=== PATIENT | female | born 1955 | race Caucasian/White ===

== ENCOUNTER 2016-11-30 10:28 | Emergency (ER) | payer BC, OTHER ==
[~2016-11-30] VITALS: Ht 162.6 cm; Wt 123.4 kg
[~2016-11-30 10:28] MED LIST: AMLO5TAB4 PO; ASPI-630 PO; GLYB5TAB3 PO; HCTZ; HYDR-923 PO; IBUP-1027 PO; METF-620 PO; TIZA2CAP3 PO
--- NOTE | 2016-11-30 11:27 | PHYS DOC ---
Past Medical History Past Medical History: CVA, Diabetes-Type II, Glaucoma, High Cholesterol, Hypertension, IBS Past Surgical History: Cholecystectomy, Hysterectomy, Oophorectomy, Tonsillectomy Alcohol Use: None Drug Use: None Adult General Chief Complaint Chief Complaint: MECHANICAL FALL HPI HPI Patient is a 61 year old female who presents with headache and neck pain after a mechanical fall at [facility]. She states she was walking in when she tripped on a mat and fell forward, putting her hands out to brace her fall but then doesn't remember what happened next. Denies taking blood thinners, now with neck and head pain. Reports chronic low back pain, she was ambulatory at the scene. Review of Systems Review of Systems Constitutional: Denies fever or chills [] Eyes: Denies change in visual acuity, redness, or eye pain [] HENT: Denies nasal congestion or sore throat [] Respiratory: Denies cough or shortness of breath [] Cardiovascular: Denies chest pain GI: Denies abdominal pain, nausea, vomiting, bloody stools or diarrhea [] : Denies dysuria or hematuria [] Musculoskeletal: per hpi Integument: Denies rash or skin lesions [] Neurologic: Denies focal weakness or sensory changes [] Endocrine: Denies polyuria or polydipsia [] Current Medications Current Medications Current Medications Medications (Trade) Dose Ordered Sig/Anum Start Time Stop Time Status Last Admin Dose Admin Acetaminophen (Tylenol) 1,000 mg 1X ONCE 11/30/16 11:30 11/30/16 11:31 DC 11/30/16 11:50 1,000 MG Cyclobenzaprine HCl (Flexeril) 5 mg 1X ONCE 11/30/16 11:30 11/30/16 11:31 DC 11/30/16 11:50 5 MG Allergies Allergies Allergies Coded Allergies Type Severity Reaction Last Updated Verified morphine Allergy Unknown 09/04/13 Yes Physical Exam Physical Exam Constitutional: Well developed, well nourished, no acute distress, non-toxic appearance. [] HENT: Normocephalic, atraumatic, bilateral external ears normal, oropharynx moist, no oral exudates, nose normal. [] Eyes: PERRLA, EOMI, conjunctiva normal, no discharge. [] Neck:cervical collar in place, trachea midline, mid/low cervical spine ttp without stepoffs Cardiovascular:Heart rate regular rhythm, no murmur [] Lungs & Thorax: Bilateral breath sounds clear to auscultation, no wheeze Abdomen: Bowel sounds normal, soft, no tenderness, no masses, no pulsatile masses. [] Skin: Warm, dry, no erythema, no rash. [] Back: No mdiline stepoffs or tenderness, no CVA tenderness. [] Extremities: No tenderness, no cyanosis, no clubbing, ROM intact, no edema, knees without erythema or edema/no effusion Neurologic: Alert and oriented X 3, normal motor function, normal sensory function, no focal deficits noted. [] Current Patient Data Vital Signs Vital Signs Date Time Temp Pulse Resp B/P (MAP) Pulse Ox O2 Delivery O2 Flow Rate FiO2 11/30/16 11:52 78 16 96 11/30/16 10:39 98.9 215/100 (138) Room Air 98.9 EKG EKG [] Radiology/Procedures Radiology/Procedures CT head and neck: IMPRESSION: 1. Small foci of encephalomalacia in the medial left occipital and right frontal lobes suggesting old infarcts. 2. No acute intracranial abnormality is detected. IMPRESSION: 1. Moderate multilevel degenerative change as described above. 2. No acute bony abnormality is detected. [] Course & Med Decision Making Course & Med Decision Making Pertinent Labs and Imaging studies reviewed. (See chart for details) pt given flexeril and Tylenol. CT scans performed, not acute findings. Counseled pt on concussion treatment/precautions. Pt has home pain meds/muscle relaxer. Dragon Disclaimer Dragon Disclaimer This electronic medical record was generated, in whole or in part, using a voice recognition dictation system. Departure Departure Impression: Primary Impression: Concussion Disposition: 01 HOME, SELF-CARE Condition: STABLE Referrals: TOMÁS TURNER DO (PCP) CAROLYNE TINSLEY MD Nov 30, 2016 11:27
[2016-11-30] MEDS ORDERED: ACETAMINOPHEN 500 MG TABLET PO ONE (11:30)
[2016-11-30] MEDS ORDERED: CYCLOBENZAPRINE 10 MG TABLET. PO ONE (11:30)
[2016-11-30 11:52] VITALS: BP 197/89
--- NOTE | 2016-11-30 12:00 | RAD ---
CT of the head without contrast, 11/30/2016: History: Fall, head and neck pain The ventricles are within normal limits in size. There is no shift of the midline structures. There is no evidence of acute intracranial hemorrhage or mass effect. There is a small area decreased density posteromedially in the left occipital lobe suggesting encephalomalacia due to an old infarct. A smaller area of decreased density is also noted in the right frontoparietal parasagittal region. IMPRESSION: 1. Small foci of encephalomalacia in the medial left occipital and right frontal lobes suggesting old infarcts. 2. No acute intracranial abnormality is detected. CT of the cervical spine without contrast, 11/30/2016: Noncontrast scans were obtained with multiplanar reconstructions produced. There is moderate disc space narrowing at C5-6 and to a lesser degree at C6-7 and C4-5 with moderate anterior and posterior marginal spurring. There are moderate degenerative changes involving multiple facet joints bilaterally. The combination of findings is causing moderate central spinal stenosis at multiple levels including C6-7, C5-6 and C4-5. There is bony foraminal encroachment bilaterally at C5-6. No acute fracture or dislocation is identified. The visualized paraspinal soft tissues are unremarkable. IMPRESSION: 1. Moderate multilevel degenerative change as described above. 2. No acute bony abnormality is detected. PQRS Compliance Statement: One or more of the following individualized dose reduction techniques were utilized for this examination: 1. Automated exposure control 2. Adjustment of the mA and/or kV according to patient size 3. Use of iterative reconstruction technique
== END 2016-11-30 13:00 | disposition home or self-care (01) ==
LOC: ER 10:28
DX: S06.0X0A Concussion without loss of consciousness, initial encounter (principal); M54.2 Cervicalgia; M54.5 Low back pain; E11.39 Type 2 diabetes mellitus with other diabetic ophthalmic complication; H40.9 Unspecified glaucoma; E78.00 Pure hypercholesterolemia, unspecified; I10 Essential (primary) hypertension; K58.9 Irritable bowel syndrome, unspecified; G89.29 Other chronic pain; Z86.73 Personal history of transient ischemic attack (TIA), and cerebral infarction without residual deficits; Z88.5 Allergy status to narcotic agent; W01.0XXA Fall on same level from slipping, tripping and stumbling without subsequent striking against object, initial encounter; Y93.01 Activity, walking, marching and hiking; Y92.59 Other trade areas as the place of occurrence of the external cause; Y99.8 Other external cause status
CPT/HCPCS: 70450; 72125; 99284-25